=== PATIENT | female | born 1960 | race African-American/Black ===

== ENCOUNTER 2017-11-16 13:54 | Emergency (ER) | payer OTHER ==
[~2017-11-16] VITALS: Ht 162.6 cm; Wt 80.0 kg
[2017-11-16] MEDS: IBUPROFEN 600MG TABLET PO ONE (18:25)
[2017-11-16 20:00] VITALS: BP 155/95
== END 2017-11-16 20:00 | disposition home or self-care (01) ==
LOC: ER 14:16
DX: S16.1XXA Strain of muscle, fascia and tendon at neck level, initial encounter (principal); S20.219A Contusion of unspecified front wall of thorax, initial encounter; Z88.2 Allergy status to sulfonamides; Z88.0 Allergy status to penicillin; V49.9XXA Car occupant (driver) (passenger) injured in unspecified traffic accident, initial encounter; Y93.89 Activity, other specified; Y99.8 Other external cause status; Y92.410 Unspecified street and highway as the place of occurrence of the external cause
CPT/HCPCS: 71020; 81025; 93005; 99284; Z7610

== ENCOUNTER 2018-11-26 09:00 | Emergency (ER) | payer OTHER ==
[~2018-11-26] VITALS: Ht 157.5 cm; Wt 104.0 kg
[2018-11-26] MEDS ORDERED: KETOROLAC 60MG/2ML VIAL IM ONE (11:15)
[2018-11-26 13:29] VITALS: BP 139/71
== END 2018-11-26 13:32 | disposition home or self-care (01) ==
LOC: ER 09:00
DX: M54.12 Radiculopathy, cervical region (principal); M62.838 Other muscle spasm; I10 Essential (primary) hypertension; Z88.0 Allergy status to penicillin; Z88.2 Allergy status to sulfonamides
CPT/HCPCS: 72125; 96372; 99284; J1885

== ENCOUNTER 2019-07-23 04:06 | Inpatient (IN) | payer OTHER ==
[~2019-07-23] VITALS: Ht 157.5 cm; Wt 99.9 kg
[2019-07-23] MEDS ORDERED: ONDANSETRON HCL 4MG/2ML INJ IV STA (06:32)
[2019-07-23] MEDS ORDERED: SODIUM CHLORIDE 0.9% 1,000 ML IV ONE ×3 (06:32→13:44)
[2019-07-23] MEDS ORDERED: MECLIZINE 25MG TABLET PO ONE (06:45)
[2019-07-23 06:48] LABS: BASOPHILS % 0.8 % (0.0-2.0); EOSINOPHILS % 3.7 % (0.0-5.0); HEMATOCRIT. 36.1 % (36.0-48.0); LYMPHOCYTES % 27.8 % (20.0-50.0); MEAN CORPUSCULAR HEMOGLOBIN 27.9 pg (28.0-32.0); MEAN CORPUSCULAR VOLUME 84.1 fL (81.0-99.0); MONOCYTES % 7.9 % (2.0-8.0); NEUTROPHILS % 59.8 % (40.0-76.0); PLATELET 256 x1000/uL (130-400); RED BLOOD CELL COUNT 4.29 mill/uL (4.2-5.4); RED CELL DISTRIBUTION WIDTH 13.9 % (11.6-14.6)
[2019-07-23 06:51] LABS: CHLORIDE 104 mEq/L (98-107)
[2019-07-23 06:58] LABS: CLARITY URINE CLEAR (CLEAR); COLOR URINE YELLOW (YELLOW); KETONES URINE NEGATIVE (NEGATIVE); LEUKOCYTE ESTERASE URINE TRACE (NEGATIVE); NITRITE URINE NEGATIVE (NEGATIVE); OCCULT BLOOD URINE TRACE (NEGATIVE); PH URINE 5.5 (4.5-8.0); PROTEIN URINE NEGATIVE (NEGATIVE); SPECIFIC GRAVITY URINE 1.011 (1.005-1.030); UROBILINOGEN URINE 0.2 E.U./dL (0.2-1.0)
[2019-07-23] MEDS ORDERED: POTASSIUM CHLORIDE 20MEQ TABLET SR PO ONE (07:15)
[2019-07-23] MEDS ORDERED: METOCLOPRAMIDE HCL 10MG/2ML VIAL IV ONE (09:00)
[2019-07-23] MEDS ORDERED: ONDANSETRON HCL 4MG/2ML INJ IV PRN (14:00)
[2019-07-23] MEDS ORDERED: MECLIZINE 25MG TABLET PO PRN (14:00)
[2019-07-23] MEDS ORDERED: ACETAMINOPHEN 325MG TABLET PO PRN (14:00)
[2019-07-23] MEDS: SODIUM CHLORIDE 0.9% 1,000 ML IV SCH ×2 (14:00→21:18)
[2019-07-23 20:00] VITALS: BP_SYST 154; BP_SYST 167; BP_SYST 169; BP_DIAS 73; BP_DIAS 77; BP_DIAS 93
[2019-07-23 20:07] VITALS: BP 167/77
[2019-07-23] MEDS: AMLODIPINE 5MG TABLET PO SCH (21:18)
[2019-07-24] VITALS: BP 129/66
[2019-07-24 04:00] VITALS: BP 111/57
[2019-07-24 08:00] VITALS: BP_SYST 114; BP_SYST 118; BP_SYST 123; BP_DIAS 51; BP_DIAS 68; BP_DIAS 75
[2019-07-24 08:16] LABS: BASOPHILS % 0.6 % (0.0-2.0); EOSINOPHILS % 2.4 % (0.0-5.0); HEMATOCRIT. 35.4 % (36.0-48.0); HEMOGLOBIN. 11.6 g/dL (12.0-16.0); LYMPHOCYTES % 26.1 % (20.0-50.0); MEAN CORPUSCULAR HEMOGLOBIN 27.6 pg (28.0-32.0); MEAN CORPUSCULAR VOLUME 84.4 fL (81.0-99.0); MEAN PLATELET VOLUME 10.3 fl (7.4-10.4); MONOCYTES % 7.6 % (2.0-8.0); NEUTROPHILS % 63.3 % (40.0-76.0); PLATELET 236 x1000/uL (130-400); RED BLOOD CELL COUNT 4.19 mill/uL (4.2-5.4); RED CELL DISTRIBUTION WIDTH 13.8 % (11.6-14.6)
[2019-07-24] MEDS: AMLODIPINE 5MG TABLET PO SCH (09:26)
[2019-07-24] MEDS: SODIUM CHLORIDE 0.9% 1,000 ML IV SCH (09:30)
[2019-07-24 09:35] LABS: CHLORIDE 107 mEq/L (98-107)
[2019-07-24] MEDS ORDERED: POTASSIUM CHLORIDE 20MEQ TABLET SR PO NR (11:45)
[2019-07-24 12:00] VITALS: BP 133/88
[2019-07-24 16:00] VITALS: BP 150/82
[2019-07-24 16:23] VITALS: BP 150/82
== END 2019-07-24 17:48 | disposition home or self-care (01) | DRG 48 ==
LOC: ER 04:06 → 5WST 13:47 → ENRESERV 16:19
PROVIDERS: ADMIT Internal Medicine; ATTEND Internal Medicine
DX: G90.8 Other disorders of autonomic nervous system (principal); Z68.41 Body mass index [BMI] 40.0-44.9, adult; E66.9 Obesity, unspecified; E78.5 Hyperlipidemia, unspecified; E87.6 Hypokalemia; I10 Essential (primary) hypertension; Z88.2 Allergy status to sulfonamides; Z88.0 Allergy status to penicillin; Z71.3 Dietary counseling and surveillance
CPT/HCPCS: 36415; 80048; 80061; 81003; 84443; 84484; 93005; 93306; 97162; 99285; J2405; J2765; J7030; J8597